=== PATIENT | female | born 1985 | race Hispanic/Latino ===

== ENCOUNTER 2020-12-15 21:04 | Inpatient (IN) | payer OTHER, BC ==
[~2020-12-15] VITALS: Ht 154.9 cm; Wt 81.6 kg
[~2020-12-15 21:04] MED LIST: VERA40TA5 PO
[2020-12-15] MEDS ORDERED: PREN-196 PO (21:21)
[2020-12-15] MEDS ORDERED: LACTATED RINGERS 1000ML 1,000 ML IV PRN (21:30)
[2020-12-15] MEDS ORDERED: PROMETHAZINE HCL 25 MG/ML 1ML AMPULE IM PRN (21:30)
[2020-12-15] MEDS ORDERED: MEPERIDINE-PF 50 MG/ML SYG IVP PRN (21:30)
[2020-12-15] MEDS ORDERED: MEPERIDINE-PF 25 MG/ML SYG IV PRN (21:30)
[2020-12-15 21:38] LABS: APPEARANCE,URINE Clear (CLEAR); BILIRUBIN,URINE Negative (NEGATIVE); COLOR,URINE Yellow (YELLOW); GLUCOSE, URINE (UA) Negative (NEGATIVE); KETONES,URINE Negative (NEGATIVE); LEUKOCYTE ESTERASE ,URINE Negative (NEGATIVE); NITRATE,URINE Negative (NEGATIVE); OCCULT BLOOD,URINE Moderate (NEGATIVE); PH,URINE 6.5 (5.0-8.0); PROTEIN,URINE Negative (NEGATIVE); UROBILINOGEN,URINE 0.2 mg/dL (0.2-1.0)
[2020-12-15 21:55] LABS: BACTERIA,URINE Rare /HPF (None Seen); SQUAMOUS EPITHELIAL CELL,UR Few /HPF (0-2); WBC,URINE 0-1 /HPF (0-1)
[2020-12-15 22:34] LABS: HEMATOCRIT 35.4 % (36-48); MEAN CORPUSCULAR HEMOGLOBIN 29.4 pg (27.0-33.0); MEAN CORPUSCULAR HGB CONC 33.3 g/dL (32.0-36.0); MEAN CORPUSCULAR VOLUME 88.1 fL (79-99); RED BLOOD CELL COUNT(AUTO) 4.02 MIL/uL (4.00-5.50); RED CELL DISTRIBUTION WIDTH 14.5 % (11.0-15.5); WHITE BLOOD COUNT (AUTO) 9.2 K/uL (4.8-10.8)
[2020-12-15 22:37] LABS: AMPHET/METH SCREEN,URINE NEGATIVE (NEGATIVE); BARBITURATE SCREEN, URINE NEGATIVE (NEGATIVE); BENZODIAZEPINES SCREEN,URINE NEGATIVE (NEGATIVE); CANNABINOID SCREEN,URINE NEGATIVE (NEGATIVE); COCAINE SCREEN,URINE NEGATIVE (NEGATIVE); OPIATE SCREEN,URINE NEGATIVE (NEGATIVE); PHENCYCLIDINE SCREEN,URINE NEGATIVE (NEGATIVE)
[2020-12-15 23:42] VITALS: BP 109/58
[2020-12-16] MEDS ORDERED: OXYTOCIN-LR 20 UNITS/1000 ML 1,000 ML IV SCH (05:00)
[2020-12-16] MEDS ORDERED: ROPIVACAINE 0.2% 100ML VIAL 100 ML EP SCH (07:30)
[2020-12-16] MEDS ORDERED: NALOXONE HCL 0.4 MG/1 ML ML IV PRN (07:30)
[2020-12-16] MEDS ORDERED: EPHEDRINE SULFATE 50 MG/ML AMPULE IVP PRN ×2 (07:30→18:30)
[2020-12-16] MEDS ORDERED: LACTATED RINGERS 500 ML 500 ML IV PRN (07:30)
[2020-12-16] MEDS ORDERED: CEFAZOLIN SODIUM 1 GM VIAL ONE (12:29)
[2020-12-16] MEDS ORDERED: CALDOLOR 800MG+NS 250ML 250 ML IV PRN (12:30)
[2020-12-16] MEDS ORDERED: CEFAZOLIN SODIUM 1 GM VIAL IVP PRN (12:30)
[2020-12-16] MEDS ORDERED: CALDOLOR 800MG+NS 250ML 250 ML IV ONE (12:32)
[2020-12-16] MEDS ORDERED: LIDOCAINE 2%-EPI 1:200,000 20 ML VIAL IJ ONE (12:33)
[2020-12-16] MEDS ORDERED: CEFAZOLIN SODIUM 1 GM VIAL IVP ONE (12:36)
[2020-12-16] MEDS ORDERED: PHENYLEPHRINE HCL 10 MG/ML 1ML VIAL IV ONE (12:41)
[2020-12-16] MEDS ORDERED: EPHEDRINE SULFATE 50 MG/ML AMPULE ONE (12:42)
[2020-12-16] MEDS ORDERED: OXYTOCIN 10 USP UNITS/ML ONE ×2 (12:44→13:00)
[2020-12-16] MEDS ORDERED: ONDANSETRON 4MG INJ ONE (12:45)
[2020-12-16] MEDS ORDERED: MORPHINE PF 100MG/10ML AMP IV ONE (12:48)
[2020-12-16] MEDS: CEFAZOLIN 3GM /D5W 100ML 100 ML IV SCH ×3 (13:30→23:23)
[2020-12-16] MEDS ORDERED: PROMETHAZINE HCL 25 MG/ML 1ML AMPULE IM PRN (13:30)
[2020-12-16] MEDS ORDERED: MEPERIDINE-PF 75 MG/ML SYG IM PRN (13:30)
[2020-12-16] MEDS ORDERED: DEXTROSE 5 %-0.45 % NACL 1,000 ML IV PRN (13:30)
[2020-12-16] MEDS ORDERED: 0.9%NACL 10ML VIAL IVP PRN (13:30)
[2020-12-16] MEDS ORDERED: OXYTOCIN-LR 20 UNITS/1000 ML 1,000 ML IV PRN (13:30)
[2020-12-16 15:54] VITALS: BP 116/52
[2020-12-16] MEDS ORDERED: ONDANSETRON 4MG INJ IVP PRN ×2 (17:30→18:30)
[2020-12-16] MEDS ORDERED: DiphenhydrAMINE HCL 50 MG/ML VIAL IVP PRN (18:30)
[2020-12-16] MEDS ORDERED: NALOXONE HCL 0.4 MG/1 ML ML IVP PRN ×3 (18:30)
[2020-12-16 19:30] VITALS: BP 115/53
[2020-12-16] MEDS: CALDOLOR 800MG+NS 250ML 250 ML IV SCH (20:58)
[2020-12-16 23:19] VITALS: BP 94/47
[2020-12-17 03:15] VITALS: BP 93/41
[2020-12-17] MEDS: CALDOLOR 800MG+NS 250ML 250 ML IV SCH (04:53)
[2020-12-17 04:59] LABS: HEMATOCRIT 28.8 % (36-48); MEAN CORPUSCULAR HEMOGLOBIN 29.1 pg (27.0-33.0); MEAN CORPUSCULAR HGB CONC 32.6 g/dL (32.0-36.0); MEAN CORPUSCULAR VOLUME 89.2 fL (79-99); RED BLOOD CELL COUNT(AUTO) 3.23 MIL/uL (4.00-5.50); RED CELL DISTRIBUTION WIDTH 14.4 % (11.0-15.5); WHITE BLOOD COUNT (AUTO) 14.3 K/uL (4.8-10.8)
[2020-12-17] MEDS: CEFAZOLIN 3GM /D5W 100ML 100 ML IV SCH (05:20)
[2020-12-17 06:12] LABS: HEPATITIS Bs ANTIGEN SCREEN P Negative (Negative)
[2020-12-17] MEDS ORDERED: DIPH,PERTUSS(ACELL),TET VAC/PF 0.5 ML VIAL IM ONE (06:30)
[2020-12-17 07:11] VITALS: BP 101/49
[2020-12-17] MEDS ORDERED: BISACODYL 10 MG SUPP.RECT RC PRN (08:00)
[2020-12-17] MEDS ORDERED: ACETAMINOPHEN WITH CODEINE 1 TAB TAB PO PRN (08:00)
[2020-12-17] MEDS ORDERED: IBUPROFEN 600 MG TABLET PO PRN (08:00)
[2020-12-17] MEDS ORDERED: SIMETHICONE 80 MG TAB.CHEW PO PRN (08:00)
[2020-12-17] MEDS ORDERED: LANOLIN 30GM OINTMENT TP PRN (08:00)
[2020-12-17] MEDS ORDERED: ACETAMINOPHEN 500 MG TABLET PO PRN (08:00)
[2020-12-17] MEDS ORDERED: HYDROCODONE/ACETAMINOPHEN 5/325 MG TAB PO PRN (08:00)
[2020-12-17] MEDS ORDERED: DOCUSATE SODIUM 100 MG CAP PO SCH (09:00)
[2020-12-17 11:15] VITALS: BP 91/47
[2020-12-17] MEDS ORDERED: ACET1TAB25 PO (13:55)
== END 2020-12-17 14:40 | disposition home or self-care (01) | DRG 788 ==
LOC: LDH 21:04 → WSH 12-16 15:50
PROVIDERS: ADMIT Obstetrics & Gynecology; ATTEND Obstetrics & Gynecology
PROC: 3E0234Z Introduction of Serum, Toxoid and Vaccine into Muscle, Percutaneous Approach (ICD-10-PCS; 2020-12-16)
PROC: 10D00Z1 Extraction of Products of Conception, Low, Open Approach (ICD-10-PCS; principal; 2020-12-16 12:30)
DX: O35.8XX0 Maternal care for other (suspected) fetal abnormality and damage, not applicable or unspecified (principal); Z37.0 Single live birth; Z23 Encounter for immunization; Z3A.39 39 weeks gestation of pregnancy; Z20.822 Contact with and (suspected) exposure to COVID-19
CPT/HCPCS: 36415; 59510; 80305; 81001; 85027; 86592; 86701; 86850; 86900; 86901; 87340; 87390; 87635; 90715; A4314; A4344; G0378; J0690; J1741; J2175; J2274; J2370; J2405; J2550; J2590; J2795; J3490; J7120